=== PATIENT | male | born 1970 | race Caucasian/White ===

== ENCOUNTER 2020-11-08 15:26 | Emergency (ER) | payer OTHER ==
[~2020-11-08] VITALS: Ht 167.6 cm; Wt 81.6 kg
[~2020-11-08 15:26] MED LIST: Z.0.CRESTOR5 MG PO
[2020-11-08 16:09] LABS: BASOPHILS % 0.3 % (0.0-1.0); EOSINOPHILS # (AUTO) 0.1 (0.0-0.4); EOSINOPHILS % 0.7 % (0.0-6.0); HEMATOCRIT 46.1 % (38.2-49.6); HEMOGLOBIN 14.7 g/dL (14.0-18.0); LYMPHOCYTES # (AUTO) 1.6 (1.0-3.2); LYMPHOCYTES % 15.8 % (18.0-39.1); MEAN CORPUSCULAR HEMOGLOBIN 27.4 pg (28-32); MEAN CORPUSCULAR HGB CONC 31.9 g/dL (31-35); MEAN CORPUSCULAR VOLUME 85.8 fL (81-99); MONOCYTES # (AUTO) 0.7 (0.2-0.8); MONOCYTES % 6.3 % (4.4-11.3); NEUTROPHILS # (AUTO) 7.9 (2.1-6.9); NEUTROPHILS % 76.6 % (38.7-80.0); PLATELET COUNT 138 x10e3/uL (140-360); RED BLOOD COUNT 5.37 x10e6/uL (4.3-5.7); RED CELL DISTRIBUTION WIDTH 13.9 % (11.7-14.4)
[2020-11-08 16:16] LABS: INR 0.91; PROTHROMBIN TIME 12.5 seconds (11.9-14.5)
[2020-11-08 16:23] LABS: ALBUMIN 4.1 g/dL (3.5-5.0); ALBUMIN/GLOBULIN RATIO 1.2 (0.8-2.0); CALCIUM 9.7 mg/dL (8.4-10.2); CREATININE, SERUM 0.96 mg/dL (0.72-1.25)
[2020-11-08] MEDS ORDERED: IOPAMIDOL 370 MG/ML 200 ML INFUS..BTL INJ ONE (18:18)
[2020-11-08] MEDS ORDERED: SODIUM CHLORIDE 0.9% 50ML 50 ML ONE (18:18)
[2020-11-08] MEDS ORDERED: PEPCID20 MG PO (18:37)
== END 2020-11-08 19:59 | disposition home or self-care (01) ==
LOC: ER 17:21
DX: R10.84 Generalized abdominal pain (principal); K92.2 Gastrointestinal hemorrhage, unspecified; Z79.1 Long term (current) use of non-steroidal anti-inflammatories (NSAID)
CPT/HCPCS: 36415; 71045; 74177; 80053; 85025; 85610; 85730; 86850; 86900; 93005; 99284; Q9967